=== PATIENT | male | born 2000 | race American Indian/Alaskan Native ===

== ENCOUNTER 2021-11-14 20:51 | Emergency (ER) | payer SELFPAY ==
[2021-11-14 22:51] LABS: Basophils % (Auto) 0.2 % (0.0-1.8); Hematocrit 44.8 % (35.5-45.6); Hemoglobin 14.2 gm/dl (11.8-15.2); Lymphocytes # (Auto) 2.1 K/mm3 (1.2-5.4); Mean Corpuscular HGB Conc 32 % (32-34); Mean Corpuscular Volume 77 fl (84-94); Monocytes # (Auto) 0.4 K/mm3 (0.0-0.8); Monocytes % (Auto) 3.1 % (0.0-7.3); Platelet Count 344 K/mm3 (140-440); Red Blood Count 5.79 M/mm3 (3.65-5.03); Red Cell Distribution Width 14.7 % (13.2-15.2)
[2021-11-14 23:05] LABS: BUN/Creatinine Ratio 14; Blood Urea Nitrogen 11 mg/dL (9-20); Hemolysis Index 10
[2021-11-15 07:12] LABS: Color,Urine Yellow (Yellow)
[2021-11-15 07:14] LABS: Amphetamine Screen,Urine Negative; Benzodiazepines Screen,Urine Negative; Cannabinoid Screen,Urine Negative; Cocaine Screen,Urine Negative; Methadone Screen,Urine Negative; Opiate Screen,Urine Negative
[2021-11-15 07:17] LABS: WBC,Urine < 1.0 /HPF (0.0-6.0)
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
[2021-11-15] MEDS ORDERED: MIDAZOLAM 5 MG/5 ML INJ MDV IV NR (08:00)
[2021-11-15] MEDS ORDERED: hydrOXYzine PAMOATE 25 MG CAP PO SCH (10:21)
[2021-11-15] MEDS ORDERED: clonazePAM 0.5 MG TAB PO SCH (10:22)
--- NOTE | 2021-11-15 10:27 | Consultation ---
History of Present Illness - Reason for Consult Consult date: 11/15/21 Reason for consult: Opiate withdrawals - History of Present Psychiatric Illness The patient was seen today. He's a/o x 3. He's cooperative. The patient appears anxious. He says he's here to get medically cleared for treatment for opiate addiction at [facility]. The patient says he takes oxycontin, fentanyl patch, and alprozolam. He says he feels shaky and is experiencing diarrhea. The patient is asking for something to help him. He says "I feel horrible physically." He denies SI/HI or hallucinations. He says his family is in [place] and he's moving back there after detox. He says he's been in [place] about a year. He says right now he's homeless. He says "but all I have to do is go back to [place] with my parents. I can stay with them." He says he sees a psychiatrist for panic disorder. The patient denies past suicide attempt, or psych hospital admits. He denies any illicit street drugs or alcohol. REVIEW OF SYSTEMS Constitutional: Negative for weight loss ENT: Negative for stridor Respiratory: Negative for cough or hemoptysis All other systems reviewed and are negative MENTAL STATUS EXAMINATION General Appearance and Behavior: Age appropriate, good hygiene, wearing appropriate clothes, anxious, cooperative Cooperation: Cooperative Psychomotor Behavior: Psychomotor normal Mood: anxious Affect and affective range: congruent with stated mood Thought Process: goal directed Thought Content: denies Speech: Normal tone and pace Suicidal Ideation: Denies Homicidal Ideation: Denies Hallucinations: Denies Delusions: None elicited Impulse Control: Limited Insight and Judgment: limited insight and poor judgment Memory: Limited Attention: attentive Orientation: a/o Assessment (1) Opiate Dependence with Withdrawal Treatment Plan Klonopin 0.5mg po Once Vistaril 25mg po Once Please give the patient the one time dose meds prior to leaving Medical: per primary Sitter: defer to primary Disposition: Do not recommend acute psychiatric inpatient treatment. The patient may discharge and start his detox treatment once medically clear The solar sales representative and assessor to give the patient all necessary resources, and rehab resources Will sign off. Thanks Case staffed with Dr. Quintana Medications and Allergies Allergies Allergy/AdvReac Type Severity Reaction Status Date / Time No Known Allergies Allergy Verified 11/14/21 22:25 Active Meds: Active Medications Clonazepam (Clonazepam 0.5 Mg Tab) 0.5 mg PO ONCE ONE Stop: 11/15/21 10:23 Hydroxyzine Pamoate (Hydroxyzine Pamoate 25 Mg Cap) 25 mg PO ONCE ONE Stop: 11/15/21 10:22 Mental Status Exam - Vital signs Last Vital Signs Temp 98.3 F 11/14/21 22:25 Pulse 79 11/15/21 07:19 Resp 18 11/15/21 07:19 BP 203/110 11/15/21 07:19 Pulse Ox 91 11/15/21 07:19 Results Result Diagrams: 11/14/21 22:32 11/14/21 22:32 Abnormal lab results 11/14/21 11/14/21 11/14/21 Range/Units 22:32 22:32 22:32 WBC (4.5-11.0) K/mm3 RBC (3.65-5.03) M/mm3 MCV (84-94) fl MCH (28-32) pg Seg Neutrophils % (40.0-70.0) % Seg Neutrophils # (1.8-7.7) K/mm3 Glucose 111 H (75-100) mg/dL Salicylates < 0.3 L (2.8-20.0) mg/dL Acetaminophen 8.5 L (10.0-30.0) ug/mL 11/14/21 Range/Units 22:32 WBC 12.5 H (4.5-11.0) K/mm3 RBC 5.79 H (3.65-5.03) M/mm3 MCV 77 L (84-94) fl MCH 25 L (28-32) pg Seg Neutrophils % 79.7 H (40.0-70.0) % Seg Neutrophils # 9.9 H (1.8-7.7) K/mm3 Glucose (75-100) mg/dL Salicylates (2.8-20.0) mg/dL Acetaminophen (10.0-30.0) ug/mL All other labs normal.
[2021-11-15 11:17] VITALS: BP 130/68
== END 2021-11-15 12:08 | disposition home or self-care (01) ==
LOC: ED 20:51
DX: Z04.6 Encounter for general psychiatric examination, requested by authority (principal); F32.9 Major depressive disorder, single episode, unspecified; F17.200 Nicotine dependence, unspecified, uncomplicated; Z79.899 Other long term (current) drug therapy
CPT/HCPCS: 36415; 80048; 80307; 80320; 81001; 85025; 99284; G0480